=== PATIENT | male | born 1955 | race Caucasian/White ===

== ENCOUNTER 2021-01-29 08:21 | Day surgery (SDC) | payer OTHER ==
[2021-01-28 12:05] VITALS: BMI 27.8
[2021-01-29] MEDS ORDERED: PROPOFOL 20 ML ONE (09:19)
[2021-01-29 10:05] VITALS: BP 131/77; PULSE 59; TEMP 98.1
== END 2021-01-29 10:25 | disposition home or self-care (01) ==
LOC: FASU-ENDO 08:21
PROVIDERS: ATTEND Internal Medicine Gastroenterology
PROC: 0DJD8ZZ Inspection of Lower Intestinal Tract, Via Natural or Artificial Opening Endoscopic (ICD-10-PCS; principal; 2021-01-29 09:25)
DX: Z12.11 Encounter for screening for malignant neoplasm of colon (principal); K57.30 Diverticulosis of large intestine without perforation or abscess without bleeding; Z86.010 Personal history of colon polyps; Z80.0 Family history of malignant neoplasm of digestive organs